=== PATIENT | female | born 2000 | race Hispanic/Latino ===

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

== ENCOUNTER 2021-01-16 12:35 | Emergency (ER) | payer BC, OTHER ==
[2021-01-16] MEDS ORDERED: KETOROLAC 30MG VIAL (30MG/ML) ONE (14:49)
[2021-01-16] MEDS ORDERED: CYCLOBENZAPRINE HCL 10 MG TABLET ONE (14:50)
[2021-01-16 15:04] LABS: APPEARANCE,URINE Cloudy (CLEAR); BILIRUBIN,URINE Negative (NEGATIVE); COLOR,URINE Yellow (YELLOW); GLUCOSE, URINE (UA) Negative (NEGATIVE); KETONES,URINE Negative (NEGATIVE); LEUKOCYTE ESTERASE ,URINE Moderate (NEGATIVE); NITRATE,URINE Negative (NEGATIVE); OCCULT BLOOD,URINE Negative (NEGATIVE); PH,URINE 6.5 (5.0-8.0); PROTEIN,URINE Negative (NEGATIVE)
[2021-01-16 15:14] LABS: HCG,QUAL RESULT NEGATIVE (NEGATIVE)
[2021-01-16 15:19] LABS: BACTERIA,URINE Few /HPF (None Seen); RBC,URINE 0-1 /HPF (0-1)
[2021-01-16 15:20] LABS: MUCUS,URINE Rare LPF (None Seen); SQUAMOUS EPITHELIAL CELL,UR Few /HPF (0-2)
[2021-08-29] MEDS ORDERED: CYCL10TA16 PO (19:41)
== END 2021-01-16 15:36 | disposition home or self-care (01) ==
LOC: EDH 12:35
DX: S39.012A Strain of muscle, fascia and tendon of lower back, initial encounter (principal); N39.0 Urinary tract infection, site not specified; X58.XXXA Exposure to other specified factors, initial encounter; Y93.89 Activity, other specified; Y92.89 Other specified places as the place of occurrence of the external cause; Y99.8 Other external cause status
CPT/HCPCS: 81001; 81025; 87088; 96372; 99283; J1885

== ENCOUNTER 2021-02-21 22:01 | Emergency (ER) | payer BC, OTHER ==
[2021-02-21] MEDS ORDERED: KETOROLAC TROMETHAMINE 60 MG/2 ML VIAL ONE (22:30)
[2021-02-21] MEDS ORDERED: CYCLOBENZAPRINE HCL 10 MG TABLET ONE (22:30)
== END 2021-02-21 23:44 | disposition home or self-care (01) ==
LOC: EDH 22:01
DX: S39.012A Strain of muscle, fascia and tendon of lower back, initial encounter (principal); S30.0XXA Contusion of lower back and pelvis, initial encounter; S20.229A Contusion of unspecified back wall of thorax, initial encounter; M62.830 Muscle spasm of back; W18.39XA Other fall on same level, initial encounter; Y93.89 Activity, other specified; Y92.89 Other specified places as the place of occurrence of the external cause; Y99.8 Other external cause status
CPT/HCPCS: 72100; 81025; 96372; 99284; J1885

== ENCOUNTER 2021-06-23 22:27 | Emergency (ER) | payer OTHER ==
[~2021-06-23] VITALS: Ht 144.8 cm; Wt 76.7 kg
[2021-06-23 23:27] LABS: APPEARANCE,URINE Clear (CLEAR); BILIRUBIN,URINE Negative (NEGATIVE); COLOR,URINE Yellow (YELLOW); GLUCOSE, URINE (UA) Negative (NEGATIVE); KETONES,URINE Negative (NEGATIVE); LEUKOCYTE ESTERASE ,URINE Small (NEGATIVE); NITRATE,URINE Negative (NEGATIVE); OCCULT BLOOD,URINE Moderate (NEGATIVE); PH,URINE 5.5 (5.0-8.0); PROTEIN,URINE Negative (NEGATIVE); UROBILINOGEN,URINE 0.2 mg/dL (0.2-1.0)
[2021-06-23 23:36] LABS: BACTERIA,URINE Rare /HPF (None Seen); SQUAMOUS EPITHELIAL CELL,UR Rare /HPF (0-2); WBC,URINE 0-1 /HPF (0-1)
[2021-06-24 00:34] VITALS: BP 138/88
[2021-06-24] MEDS ORDERED: KETOROLAC 30MG VIAL (30MG/ML) IV ONE (01:30)
[2021-06-24] MEDS ORDERED: LACTATED RINGERS 1000ML 1,000 ML IV ONE (01:30)
[2021-06-24] MEDS ORDERED: ORPHENADRINE CITRATE 30 MG/ML ML IV ONE (01:30)
[2021-06-24 01:47] LABS: BASOPHILS % (AUTO) 0.7 % (0.0-5.0); EOSINOPHILS % (AUTO) 1.2 % (0.0-8.0); HEMATOCRIT 45.5 % (36-48); LYMPHOCYTES % (AUTO) 44.4 % (21.0-51.0); MEAN CORPUSCULAR HEMOGLOBIN 31.1 pg (27.0-33.0); MEAN CORPUSCULAR HGB CONC 35.2 g/dL (32.0-36.0); MEAN CORPUSCULAR VOLUME 88.5 fL (80-100); MONOCYTES % (AUTO) 4.3 % (3.0-13.0); NEUTROPHILS % (AUTO) 49.2 % (40.0-77.0); PLATELET COUNT (AUTO) 112 K/uL (130-400); RED BLOOD CELL COUNT(AUTO) 5.14 MIL/uL (4.00-5.50); RED CELL DISTRIBUTION WIDTH 12.2 % (11.0-15.5); WHITE BLOOD COUNT (AUTO) 9.9 K/uL (4.8-10.8)
[2021-06-24 01:57] LABS: CREATININE 0.6 mg/dL (0.5-1.5); CRP QUANTITATIVE 6.4 mg/L (0.00-9.0); POTASSIUM 4.7 mmol/L (3.5-5.1)
[2021-06-24] MEDS ORDERED: NAPR-1174 PO (02:25)
[2021-06-24 03:17] VITALS: BP 132/82
== END 2021-06-24 03:24 | disposition home or self-care (01) ==
LOC: EDH 22:27
DX: M54.5 Low back pain (principal); N94.6 Dysmenorrhea, unspecified; Z79.1 Long term (current) use of non-steroidal anti-inflammatories (NSAID)
CPT/HCPCS: 36415; 80048; 81001; 81025; 85025; 86140; 96361; 96374; 96375; 99284; J1885; J2360; J7120

== ENCOUNTER 2021-08-29 16:49 | Emergency (ER) | payer OTHER ==
[~2021-08-29] VITALS: Ht 144.8 cm; Wt 72.6 kg
[~2021-08-29 16:49] MED LIST: NAPR-1174 PO
[2021-08-29] MEDS ORDERED: CYCLOBENZAPRINE HCL 10 MG TABLET PO ONE (18:30)
[2021-08-29] MEDS ORDERED: KETOROLAC 60 MG VIAL (30MG/ML) IM ONE (18:30)
[2021-08-29 19:25] VITALS: BP 132/86
[2021-08-29] MEDS ORDERED: CYCL10 PO (19:41)
[2021-08-29] MEDS ORDERED: MELO7.5T12 PO (19:41)
== END 2021-08-29 19:53 | disposition home or self-care (01) ==
LOC: EDH 16:49
DX: S39.012A Strain of muscle, fascia and tendon of lower back, initial encounter (principal); E78.00 Pure hypercholesterolemia, unspecified; X58.XXXA Exposure to other specified factors, initial encounter; Y93.89 Activity, other specified; Y92.89 Other specified places as the place of occurrence of the external cause; Y99.8 Other external cause status
CPT/HCPCS: 72100; 81025; 96372; 99284; J1885

== ENCOUNTER 2022-05-17 20:45 | Emergency (ER) | payer OTHER ==
[~2022-05-17] VITALS: Ht 144.8 cm; Wt 79.4 kg
[~2022-05-17 20:45] MED LIST changes: +CYCL10TA16 PO; +MELO7.5T12 PO
[2022-05-17] MEDS ORDERED: ACETAMINOPHEN 500 MG TABLET PO ONE (21:00)
[2022-05-17] MEDS ORDERED: 0.9%NACL 1000ML 1,000 ML IV SCH (21:00)
[2022-05-17] MEDS ORDERED: GUAIFENESIN-CODEINE 5 ML SYRUP PO ONE (21:00)
[2022-05-17] MEDS ORDERED: ACETAMINOPHEN 500 MG TABLET ONE (21:04)
[2022-05-17] MEDS ORDERED: GUAIFENESIN-CODEINE 5 ML SYRUP ONE (21:04)
[2022-05-17 21:17] LABS: BILIRUBIN,URINE NEGATIVE (NEGATIVE); COLOR,URINE YELLOW (YELLOW); GLUCOSE, URINE (UA) NEGATIVE (NEGATIVE); KETONES,URINE NEGATIVE (NEGATIVE); LEUKOCYTE ESTERASE ,URINE NEGATIVE (NEGATIVE); NITRATE,URINE NEGATIVE (NEGATIVE); OCCULT BLOOD,URINE NEGATIVE (NEGATIVE); PROTEIN,URINE NEGATIVE (NEGATIVE); UROBILINOGEN,URINE 0.2 mg/dL (0.2-1.0)
[2022-05-17 21:24] LABS: APPEARANCE,URINE CLEAR (CLEAR)
[2022-05-17] MEDS ORDERED: D-ME1POW16 PO (21:39)
[2022-05-17 21:53] VITALS: BP 134/82
== END 2022-05-17 22:02 | disposition home or self-care (01) ==
LOC: EDH 20:45
DX: U07.1 COVID-19 (principal); J06.9 Acute upper respiratory infection, unspecified; E86.0 Dehydration
CPT/HCPCS: 81003; 87635; 87804 ×2; 87880; 96360; 99283; C9803; J7030

== ENCOUNTER 2023-01-09 15:42 | Emergency (ER) | payer OTHER ==
[~2023-01-09] VITALS: Ht 144.8 cm; Wt 78.9 kg
[~2023-01-09 15:42] MED LIST changes: +D-ME1POW16 PO
[2023-01-09 16:02] LABS: BASOPHILS % (AUTO) 0.6 % (0.0-5.0); EOSINOPHILS % (AUTO) 0.6 % (0.0-8.0); HEMATOCRIT 46.6 % (36-48); LYMPHOCYTES % (AUTO) 29.6 % (21.0-51.0); MEAN CORPUSCULAR HEMOGLOBIN 31.8 pg (27.0-33.0); MEAN CORPUSCULAR HGB CONC 35.2 g/dL (32.0-36.0); MEAN CORPUSCULAR VOLUME 90.5 fL (80-100); MONOCYTES % (AUTO) 5.4 % (3.0-13.0); NEUTROPHILS % (AUTO) 63.5 % (40.0-77.0); PLATELET COUNT (AUTO) 302 K/uL (130-400); RED BLOOD CELL COUNT(AUTO) 5.15 MIL/uL (4.00-5.50); WHITE BLOOD COUNT (AUTO) 11.1 K/uL (4.8-10.8)
[2023-01-09 16:13] LABS: CREATININE 0.7 mg/dL (0.5-1.5); POTASSIUM 3.8 mmol/L (3.5-5.1)
[2023-01-09 16:19] LABS: ALBUMIN 4.1 g/dL (3.5-5.0); TOTAL PROTEIN, SERUM 8.3 g/dL (6.0-8.3)
[2023-01-09] MEDS ORDERED: IBUPROFEN 600 MG TABLET PO ONE (18:30)
[2023-01-09] MEDS ORDERED: CYCLOBENZAPRINE HCL 10 MG TABLET PO ONE (18:30)
[2023-01-09 18:53] VITALS: BP 150/90
[2023-01-09 18:55] LABS: APPEARANCE,URINE CLEAR (CLEAR); BILIRUBIN,URINE NEGATIVE (NEGATIVE); COLOR,URINE LIGHT-YELLOW (YELLOW); GLUCOSE, URINE (UA) NEGATIVE (NEGATIVE); KETONES,URINE NEGATIVE (NEGATIVE); LEUKOCYTE ESTERASE ,URINE NEGATIVE Leu/uL (NEGATIVE); NITRATE,URINE NEGATIVE (NEGATIVE); OCCULT BLOOD,URINE NEGATIVE (NEGATIVE); PH,URINE 5.5 (5.0-8.0); PROTEIN,URINE NEGATIVE (NEGATIVE); UROBILINOGEN,URINE 0.2 mg/dL (0.2-1.0)
[2023-01-09] MEDS ORDERED: CYCL10TA16 PO (19:16)
[2023-01-09] MEDS ORDERED: IBUP-2070 PO (19:16)
== END 2023-01-09 19:38 | disposition home or self-care (01) ==
LOC: EDH 15:42
DX: S39.012A Strain of muscle, fascia and tendon of lower back, initial encounter (principal); M94.0 Chondrocostal junction syndrome [Tietze]; E78.00 Pure hypercholesterolemia, unspecified; Z86.2 Personal history of diseases of the blood and blood-forming organs and certain disorders involving the immune mechanism; Z79.1 Long term (current) use of non-steroidal anti-inflammatories (NSAID); Z79.899 Other long term (current) drug therapy; X58.XXXA Exposure to other specified factors, initial encounter; Y93.89 Activity, other specified; Y92.89 Other specified places as the place of occurrence of the external cause; Y99.8 Other external cause status
CPT/HCPCS: 36415; 71045; 80053; 81003; 81025; 84484; 85025; 93005

== ENCOUNTER 2023-02-02 15:02 | Emergency (ER) | payer OTHER ==
[~2023-02-02] VITALS: Ht 144.8 cm; Wt 79.4 kg
[~2023-02-02 15:02] MED LIST changes: +IBUP-2070 PO
[2023-02-02 15:49] LABS: BASOPHILS % (AUTO) 0.5 % (0.0-5.0); EOSINOPHILS % (AUTO) 0.8 % (0.0-8.0); HEMATOCRIT 44.9 % (36-48); MEAN CORPUSCULAR HEMOGLOBIN 31.8 pg (27.0-33.0); MEAN CORPUSCULAR HGB CONC 35.2 g/dL (32.0-36.0); MEAN CORPUSCULAR VOLUME 90.3 fL (80-100); MONOCYTES % (AUTO) 5.4 % (3.0-13.0); PLATELET COUNT (AUTO) 242 K/uL (130-400); RED BLOOD CELL COUNT(AUTO) 4.97 MIL/uL (4.00-5.50); RED CELL DISTRIBUTION WIDTH 11.9 % (11.0-15.5); WHITE BLOOD COUNT (AUTO) 10.2 K/uL (4.8-10.8)
[2023-02-02 16:05] LABS: CREATININE 0.8 mg/dL (0.5-1.5); POTASSIUM 3.7 mmol/L (3.5-5.1)
[2023-02-02 16:09] LABS: ALBUMIN 4.1 g/dL (3.5-5.0); TOTAL PROTEIN, SERUM 7.8 g/dL (6.0-8.3)
[2023-02-02 18:45] LABS: APPEARANCE,URINE CLOUDY (CLEAR); BILIRUBIN,URINE NEGATIVE (NEGATIVE); COLOR,URINE LIGHT-YELLOW (YELLOW); GLUCOSE, URINE (UA) NEGATIVE (NEGATIVE); KETONES,URINE NEGATIVE (NEGATIVE); LEUKOCYTE ESTERASE ,URINE NEGATIVE Leu/uL (NEGATIVE); NITRATE,URINE NEGATIVE (NEGATIVE); OCCULT BLOOD,URINE NEGATIVE (NEGATIVE); PROTEIN,URINE NEGATIVE (NEGATIVE); UROBILINOGEN,URINE 0.2 mg/dL (0.2-1.0)
[2023-02-02 18:49] LABS: BACTERIA,URINE RARE /HPF (None Seen); MUCUS,URINE RARE LPF (None Seen); SQUAMOUS EPITHELIAL CELL,UR FEW /HPF (0-2); YEAST,URINE BUDDING FEW /HPF (None Seen)
[2023-02-02 18:51] LABS: HCG,QUALITATIVE URINE NEGATIVE (NEGATIVE)
[2023-02-02 20:41] VITALS: BP 126/62
== END 2023-02-02 20:41 | disposition home or self-care (01) ==
LOC: EDH 15:02
DX: M94.0 Chondrocostal junction syndrome [Tietze] (principal); F41.9 Anxiety disorder, unspecified; E66.01 Morbid (severe) obesity due to excess calories; E78.00 Pure hypercholesterolemia, unspecified; Z68.37 Body mass index [BMI] 37.0-37.9, adult
CPT/HCPCS: 36415; 71045; 80053; 81001; 81025; 84484; 85025; 93005

== ENCOUNTER 2023-06-27 19:33 | Emergency (ER) | payer OTHER ==
[~2023-06-27] VITALS: Ht 144.8 cm; Wt 79.4 kg
[2023-06-27 19:36] VITALS: O2SAT 98
[2023-06-27 19:37] VITALS: BP 154/91; PULSE 93; RESP 18
[2023-06-27 19:56] LABS: HCG,QUALITATIVE URINE NEGATIVE (NEGATIVE)
[2023-06-27 19:59] LABS: APPEARANCE,URINE TURBID (CLEAR); BILIRUBIN,URINE NEGATIVE (NEGATIVE); COLOR,URINE LIGHT-YELLOW (YELLOW); GLUCOSE, URINE (UA) NEGATIVE (NEGATIVE); KETONES,URINE NEGATIVE (NEGATIVE); LEUKOCYTE ESTERASE ,URINE NEGATIVE Leu/uL (NEGATIVE); NITRATE,URINE NEGATIVE (NEGATIVE); OCCULT BLOOD,URINE NEGATIVE (NEGATIVE); PROTEIN,URINE NEGATIVE (NEGATIVE); UROBILINOGEN,URINE 0.2 mg/dL (0.2-1.0)
[2023-06-27 20:00] LABS: ADD UA MICROSCOPIC NO
== END 2023-06-27 20:22 | disposition home or self-care (01) ==
LOC: EDH 19:33
DX: G43.909 Migraine, unspecified, not intractable, without status migrainosus (principal); E66.9 Obesity, unspecified; E78.00 Pure hypercholesterolemia, unspecified; Z79.899 Other long term (current) drug therapy
CPT/HCPCS: 81003; 81025

== ENCOUNTER 2023-12-12 18:53 | Emergency (ER) | payer BC, OTHER ==
[~2023-12-12] VITALS: Ht 144.8 cm; Wt 86.2 kg
[2023-12-12 19:24] LABS: RAPID GROUP A STREP negative (NEGATIVE)
[2023-12-12 19:29] LABS: BASOPHILS # (AUTO) 0.06 K/uL (0.00-0.20); BASOPHILS % (AUTO) 0.7 % (0.0-5.0); EOSINOPHILS # (AUTO) 0.23 K/uL (0.00-0.70); EOSINOPHILS % (AUTO) 2.9 % (0.0-8.0); HEMATOCRIT 44.3 % (36-48); IMMATURE GRANULOCYTE ABSOLUTE 0.03 K/uL (0-1); LYMPHOCYTES # (AUTO) 2.8 K/uL (1.0-4.8); MEAN CORPUSCULAR HEMOGLOBIN 31.4 pg (27.0-33.0); MEAN CORPUSCULAR HGB CONC 36.1 g/dL (32.0-36.0); MEAN CORPUSCULAR VOLUME 86.9 fL (79-99); MONOCYTES # (AUTO) 0.3 K/uL (0.1-1.0); MONOCYTES % (AUTO) 3.1 % (3.0-13.0); NEUTROPHILS # (AUTO) 4.7 K/uL (1.8-7.7); NEUTROPHILS % (AUTO) 57.9 % (40.0-77.0); PLATELET COUNT (AUTO) 252 K/uL (130-400); RED CELL DISTRIBUTION WIDTH 12.2 % (11.0-15.5); WHITE BLOOD COUNT (AUTO) 8.1 K/uL (4.8-10.8)
[2023-12-12 19:30] LABS: SARS-CoV-2, RNA, NAAT NEGATIVE SARS CoV-2 (NEGATIVE)
[2023-12-12] MEDS ORDERED: ACETAMINOPHEN 500 MG TABLET PO ONE (19:30)
[2023-12-12 19:34] LABS: INFLUENZA TYPE A Negative For Type A (NEGATIVE); INFLUENZA TYPE B Negative For Type B (NEGATIVE)
[2023-12-12 19:46] LABS: ALBUMIN 3.6 g/dL (3.5-5.0); BILIRUBIN,TOTAL 0.8 mg/dL (0.2-1.0); CREATININE 0.7 mg/dL (0.5-1.5); TOTAL PROTEIN, SERUM 8.1 g/dL (6.0-8.3)
[2023-12-12 20:02] VITALS: TEMP 99.8
[2023-12-12] MEDS ORDERED: BUDE90AE IH (20:54)
[2023-12-12] MEDS ORDERED: BENZ-39 PO (20:54)
[2023-12-12] MEDS ORDERED: ALBUHFA IH (20:54)
[2023-12-12] MEDS ORDERED: DEXAMETHASONE SOD PHOSPHATE 4 MG/ML 1ML VIAL IM ONE (21:00)
[2023-12-12 21:07] VITALS: BP 115/52; PULSE 80; RESP 14; O2SAT 97
== END 2023-12-12 21:28 | disposition home or self-care (01) ==
LOC: EDH 18:53
DX: J20.8 Acute bronchitis due to other specified organisms (principal); R05.9 Cough, unspecified; E66.9 Obesity, unspecified; E78.00 Pure hypercholesterolemia, unspecified; F41.9 Anxiety disorder, unspecified; F32.A Depression, unspecified; G43.909 Migraine, unspecified, not intractable, without status migrainosus; Z68.41 Body mass index [BMI] 40.0-44.9, adult; Z20.822 Contact with and (suspected) exposure to COVID-19
CPT/HCPCS: 99284; 71045; 87635; 80053; 85025; 87880; 87804 ×2; 36415; 96372; J1100

== ENCOUNTER 2024-02-03 18:30 | Emergency (ER) | payer BC ==
[~2024-02-03] VITALS: Ht 144.8 cm; Wt 92.1 kg
[~2024-02-03 18:30] MED LIST changes: +ALBUHFA IH; +BENZ-39 PO; +BUDE90AE IH
[2024-02-03 19:03] LABS: RAPID GROUP A STREP negative (NEGATIVE)
[2024-02-03 19:11] LABS: SARS-CoV-2, RNA, NAAT NEGATIVE SARS CoV-2 (NEGATIVE)
[2024-02-03 19:13] LABS: INFLUENZA TYPE A Negative For Type A (NEGATIVE); INFLUENZA TYPE B Negative For Type B (NEGATIVE)
[2024-02-03] MEDS ORDERED: BENZ-39 PO (20:06)
[2024-02-03] MEDS ORDERED: AZIT250T9 PO (20:06)
[2024-02-03 20:26] VITALS: BP 145/98; PULSE 104; RESP 22; O2SAT 94
[2024-02-03] MEDS: ACETAMINOPHEN 500 MG TABLET PO ONE (20:43)
[2024-02-03] MEDS: DEXAMETHASONE SOD PHOSPHATE 4 MG/ML 1ML VIAL IM SCH (20:43)
== END 2024-02-03 21:33 | disposition home or self-care (01) ==
LOC: EDH 18:30
DX: J20.8 Acute bronchitis due to other specified organisms (principal); J02.0 Streptococcal pharyngitis; R05.9 Cough, unspecified; E78.00 Pure hypercholesterolemia, unspecified; Z79.51 Long term (current) use of inhaled steroids; Z20.822 Contact with and (suspected) exposure to COVID-19
CPT/HCPCS: 99284; 87635; 87880; 87804 ×2; 96372; J1100

== ENCOUNTER 2024-10-22 09:04 | Emergency (ER) | payer SELFPAY ==
[~2024-10-22] VITALS: Ht 144.8 cm; Wt 97.5 kg
[~2024-10-22 09:04] MED LIST changes: +AZIT250T9 PO; -BUDE90AE IH; +BUDE90AE3 IH
[2024-10-22 09:36] LABS: BASOPHILS # (AUTO) 0.06 K/uL (0.00-0.20); BASOPHILS % (AUTO) 0.6 % (0.0-5.0); EOSINOPHILS % (AUTO) 2.1 % (0.0-8.0); HEMATOCRIT 39.8 % (36-48); IMMATURE GRANULOCYTE ABSOLUTE 0.03 K/uL (0-1); LYMPHOCYTES % (AUTO) 31.7 % (21.0-51.0); MEAN CORPUSCULAR HEMOGLOBIN 31.2 pg (27.0-33.0); MEAN CORPUSCULAR HGB CONC 35.7 g/dL (32.0-36.0); MEAN CORPUSCULAR VOLUME 87.5 fL (79-99); MONOCYTES # (AUTO) 0.4 K/uL (0.1-1.0); MONOCYTES % (AUTO) 4.7 % (3.0-13.0); NEUTROPHILS # (AUTO) 5.7 K/uL (1.8-7.7); NEUTROPHILS % (AUTO) 60.6 % (40.0-77.0); PLATELET COUNT (AUTO) 241 K/uL (130-400); RED BLOOD CELL COUNT(AUTO) 4.55 MIL/uL (4.00-5.50); RED CELL DISTRIBUTION WIDTH 12.5 % (11.0-15.5); WHITE BLOOD COUNT (AUTO) 9.4 K/uL (4.8-10.8)
[2024-10-22 09:43] LABS: CREATININE 0.6 mg/dL (0.5-1.0); POTASSIUM 3.7 mmol/L (3.5-5.1)
--- NOTE | 2024-10-22 10:22 | HMCIMG ---
CHEST 1VW HISTORY: Chest pain COMPARISON: 12/12/2023 FINDINGS: A frontal projection of the chest was obtained. No acute pulmonary infiltrates is seen. The heart is normal in size. Prominent interstitial markings are seen. No evidence of aortic calcification is seen. IMPRESSION: 1. No acute pulmonary infiltrate is seen.
--- NOTE | 2024-10-22 11:19 | ERN ---
ED Note History of Present Illness Stated Complaint: CP Chief Complaint: Chest Pain Time Seen by MD: 09:09 Dictation: This 24-year-old female presents in the emergency department with a sharp nonradiating substernal chest discomfort just to the right of the sternum that began yesterday evening while coughing and has been persistent since. The patient has been coughing producing green sputum for 3-4 days and has had some night sweats and nausea but no documented fever. The pain is exacerbated by deep breath and cough. She describes it as mostly sharp with some pressure component. Patient has no pain or swelling in the legs. She reports that she has run out of some of her asthma medications. She has a previous history of migraines, asthma, hyperlipidemia and hypertension. She has been using Tylenol at home for her pain. The patient denies cigarettes, alcohol and recreational drugs. She is here with family Allergies: Coded Allergies: No Known Allergies (Unverified Allergy, Unknown, 06/23/21) Home Meds Active Scripts Albuterol Sulfate (Ventolin Hfa/Proventil Hfa/Proair Hfa) 90 Mcg Puff, 2 PUFF IH Q4H PRN for SHORTNESS OF BREATH/WHEEZING for 30 Days, #1 INH 0 Refills Prov:DUSTIN MARTINEZ NP 02/03/24 Budesonide (Pulmicort Flexhaler) 90 Mcg Aer.pow.ba, 90 MCG IH BID for 10 Days, #1 UNIT 2 puffs by mouth twice a day for 10 days. Prov:DUSTIN MARTINEZ NP 02/03/24 Benzonatate (Tessalon Perles) 100 Mg Cap, 100 MG PO TID for cough, #30 CAP 0 Re fills Take 2 tablets by mouth every 8 hours as needed for cough. Prov:DUSTIN MARTINEZ NP 02/03/24 Azithromycin (Azithromycin) 250 Mg Tablet, 250 MG PO AD, #10 TAB Take 2 tablets by mouth daily for 5 days. Prov:DUSTIN MARTINEZ NP 02/03/24 Benzonatate (Tessalon Perles) 100 Mg Cap, 100 MG PO TIDP PRN for COUGH, #30 CAP Prov:DUSTIN MARTINEZ NP 12/12/23 Albuterol Sulfate (Ventolin Hfa/Proventil Hfa/Proair Hfa) 90 Mcg Puff, 2 PUFF IH Q4H for WHEEZING, #1 INHALER 0 Refills Prov:DUSTIN MARTINEZ [employer] 12/12/23 Budesonide (Pulmicort Flexhaler) 90 Mcg Aer.pow.ba, 90 MCG IH BID for 10 Days, #1 UNIT Prov:DUSTIN MARTINEZ [employer] 12/12/23 Cyclobenzaprine HCl (Flexeril) 10 Mg Tab, 10 MG PO TID PRN for MUSCLE SPASMS for 3 Days, #9 TAB Prov:CAR CASTILLO V HEARING OFFICER 01/09/23 Ibuprofen (Ibuprofen) 600 Mg Tablet, 600 MG PO Q6H PRN for PAIN for 10 Days, #40 TAB Prov:CAR CASTILLO V HEARING OFFICER 01/09/23 D-Methorphan/PE/Acetaminophen (Theraflu Ms Severe Cold Pckt) 1 Each Powd.pack, 1 EACH PO QID, #20 PACK Prov:KANDICE ARREGUIN 05/17/22 Cyclobenzaprine HCl (Flexeril) 10 Mg Tab, 10 MG PO BID, #30 TAB Prov:KANDICE ARREGUIN 08/29/21 Meloxicam (Mobic) 7.5 Mg Tablet, 7.5 MG PO BIDAC, #60 TAB Prov:KANDICE ARREGUIN 08/29/21 Naproxen Sodium (Naproxen Sodium) 550 Mg Tablet, 550 MG PO BID WITH FOOD for PAIN, #20 TAB 0 Refills Prov:SHANITA HERNANDEZ MD 06/24/21 Past Medical History Past Medical History: Asthma, High Cholesterol, Hypertension, Migraines Additional Past Medical Hx: BACK SPASMS Surgical History: None Family History: Negative Social History: Negative, Lives with family History: Not Applicable : 0 RN Note Reviewed/Agreed w/PFSH: Yes Review of System Dictation All pertinent systems reviewed, negative except as documented in the HPI The ROS is obtained from patient GENERAL/CONSTITUTIONAL: Negative except as documented in HPI. ENT: Negative except as documented in HPI. CARDIOVASCULAR: Negative except as documented in HPI. RESPIRATORY: Negative except as documented in HPI. GASTROINTESTINAL: Negative except as documented in HPI. GENITOURINARY: Negative except as documented in HPI. MUSCULOSKELETAL: Negative except as documented in HPI. SKIN: Negative except as documented in HPI. NEUROLOGIC: Negative except as documented in HPI. Initial Vital Sign VS Vital Signs Date Time Temp Pulse Resp B/P (MAP) Pulse Ox O2 Delivery O2 Flow Rate FiO2 10/22/24 09:06 98.4 73 22 132/81 97 Room Air* 0 21 Physical Exam Dictation VITAL SIGNS: note is made of triage vital signs CONSTITUTIONAL: This is a comfortable patient who is awake, alert, and appropriately interactive. HEAD: Normocephalic, Atraumatic. EYES: Periorbital areas with no swelling, redness, or edema. Lids and lashes are normal. Conjunctival injection is absent. Sclera anicteric. Pupils equal, round, reactive to light. ENT: No nasal discharge noted. Posterior pharynx is without exudate, redness, swelling, masses, or evidence of obstruction. Uvula midline. Mucous membranes moist. NECK: Trachea midline, no masses palpated, and no cervical lymphadenopathy. No swelling. Supple, full range of motion without nuchal rigidity. No vertebral point tenderness. No meningismus. CHEST/AXILLA: Normal chest wall appearance and motion. There was reproducible chest wall tenderness along the upper right sternocostal margin which reproduces the patient's chief complaint. No crepitus. CV: Normal rate, regular rhythm. No murmur. No edema. RESPIRATORY:Respiratory rate is normal. Bilateral equal breath sounds with good airflow. Mild wheezing and a dry cough are noted. No increased work of digna thing, no retractions. ABDOMEN: Inspection normal. No distention is appreciated. Bowel sounds are normal. No mass or organomegaly is appreciated. There is no tenderness. No rebound. No rigidity. No voluntary or involuntary guarding. BACK: Inspection is normal. No midline tenderness is appreciated. The patient appears comfortable when moving. : No CVA tenderness or bladder tenderness. SKIN: Warm, dry, with normal turgor. Capillary refill less than 3 seconds. Normal color.No rash. No cellulitis or abscess. No evidence of acute injury. MS/Extremity: There is no calf tenderness. Baseline range of motion is noted in all 4 extremities. There are no deformities. NEURO: Awake and alert, lucid. Facies symmetric and speech is clear. Motor strength 5/5 in all extremities. Sensory grossly intact. PSYCH: Patient is appropriately attentive and cooperative without evidence of hallucination. Results (Laboratory/Radiology) Laboratory/Radiology Laboratory Tests Test 10/22/24 09:18 10/22/24 09:54 10/22/24 11:45 White Blood Count 9.4 K/uL (4.8-10.8) Red Blood Count 4.55 MIL/uL (4.00-5.50) Hemoglobin 14.2 g/dL (12.0-16.0) Hematocrit 39.8 % (36-48) Mean Corpuscular Volume 87.5 fL (79-99) Mean Corpuscular Hemoglobin 31.2 pg (27.0-33.0) Mean Corpuscular Hemoglobin Concent 35.7 g/dL (32.0-36.0) Red Cell Distribution Width 12.5 % (11.0-15.5) Platelet Count 241 K/uL (130-400) Mean Platelet Volume 10.3 fL (7.5-10.5) Immature Granulocyte % (Auto) 0.3 % (0-1) Neutrophils (%) (Auto) 60.6 % (40.0-77.0) Lymphocytes (%) (Auto) 31.7 % (21.0-51.0) Monocytes (%) (Auto) 4.7 % (3.0-13.0) Eosinophils (%) (Auto) 2.1 % (0.0-8.0) Basophils (%) (Auto) 0.6 % (0.0-5.0) Neutrophils # (Auto) 5.7 K/uL (1.8-7.7) Lymphocytes # (Auto) 3.0 K/uL (1.0-4.8) Monocytes # (Auto) 0.4 K/uL (0.1-1.0) Eosinophils # (Auto) 0.20 K/uL (0.00-0.70) Basophils # (Auto) 0.06 K/uL (0.00-0.20) Absolute Immature Granulocyte (auto 0.03 K/uL (0-1) Nucleated Red Blood Cells 0.0 % (0.0-0.19) Sodium Level 134 mmol/L (136-145) L Potassium Level 3.7 mmol/L (3.5-5.1) Chloride Level 101 mmol/L (101-111) Carbon Dioxide Level 26 mmol/L (21-32) Blood Urea Nitrogen 9 mg/dL (7-18) Creatinine 0.6 mg/dL (0.5-1.0) Glomerular Filtration Rate Calc 129 mL/min (>90) Random Glucose 93 mg/dL (70-105) Total Calcium 8.5 mg/dL (8.5-10.1) Total Creatine Kinase 51 U/L (21-232) Serum Test, Qualitative NEGATIVE (NEGATIVE) Troponin I < 0.05 ng/mL (0.00-0.05) Urine Color LIGHT-YELLOW (YELLOW) Urine Appearance CLEAR (CLEAR) Urine pH 7.0 (5.0-8.0) Urine Specific [place] 1.019 (1.001-1.031) Urine Protein NEGATIVE mg/dL (NEGATIVE) Urine Glucose (UA) NEGATIVE mg/dL (NEGATIVE) Urine Ketones NEGATIVE mg/dL (NEGATIVE) Urine Occult Blood NEGATIVE (NEGATIVE) Urine Nitrate NEGATIVE (NEGATIVE) Urine Bilirubin NEGATIVE mg/dL (NEGATIVE) Urine Urobilinogen 0.2 mg/dL (0.2-1.0) Urine Leukocyte Esterase 25 [place]/uL (NEGATIVE) H Urine RBC 2-5 /HPF (0-1) H Urine WBC 2-5 /HPF (0-1) H Urine Squamous Epithelial Cells FEW /HPF (0-2) Urine Bacteria FEW /HPF (None Seen) Labs Reviewed?: Yes EKG Comment: Time reviewed: 9:00 a.m. EKG number; 1 Rate and rhythm: Normal sinus rhythm at 74 beats per minute [place]: Left axis deviation at -32 Morphology:Normal NE interval: normal QT interval: normal ST/[place]: normal Impression: normal sinus rhythm without STEMI or ectopy Comparison EKG: none EKG INTERPRETATION by Dr. Christal García ED Course ED Course Orders Procedure Category Date Status Time Vital Signs Per CPOE 10/22/24 Transmitted Routine 09:05 Chest 1vw RAD 10/22/24 Resulted 09:05 12 Lead Ekg Tracing- EKG 10/22/24 Logged Technical 09:05 Oxygen By Nc/Pulse Ox CPOE 10/22/24 Transmitted 09:05 Maintain Iv CPOE 10/22/24 Transmitted 09:05 Iv Insertion CPOE 10/22/24 Transmitted 09:05 Cardiac Monitoring CPOE 10/22/24 Transmitted 09:05 Pulse Oximetry With CPOE 10/22/24 Transmitted Vs And Prn 09:05 Cbc With Differential LAB 10/22/24 Complete 09:05 Activity: Br W/Brp CPOE 10/22/24 Transmitted With Assist 09:05 Creatine Kinase, Total LAB 10/22/24 Complete 09:05 Urinalysis Profile LAB 10/22/24 Complete 09:05 Troponin Poc Order LAB 10/22/24 Complete Only 09:05 Bedside Troponin-I LAB.ER 10/22/24 In Process (Poc) 09:05 Basic Metabolic Panel LAB 10/22/24 Complete 09:05 Testing, LAB 10/22/24 Complete Serum Hcg 09:05 Benzonatate 100 Mg PHA 10/22/24 Complete Capsule (Tessalon 100 12:00 Ipratropium/Albuterol PHA 10/22/24 Complete Neb (Duoneb) 12:00 Methylprednisolone PHA 10/22/24 Complete Succ 125mg (Solu-Medr 12:00 Ibuprofen 600 Mg PHA 10/22/24 Complete Tablet (Motrin) 12:00 Current Medications Medications (Trade) Dose Ordered Sig/Patrick Route PRN Reason Start Time Stop Time Status Last Admin Dose Admin Albuterol (DUOneb) 1 UDVIAL ONCE ONCE IH 10/22/24 12:00 10/22/24 12:01 DC 10/22/24 11:57 Benzonatate (Tessalon 100mg Caps) 100 mg ONCE ONCE PO 10/22/24 12:00 10/22/24 12:01 DC 10/22/24 12:12 Ibuprofen (moTRIN) 600 mg ONCE ONCE PO 10/22/24 12:00 10/22/24 12:01 DC 10/22/24 12:12 Methylprednisolone Sodium Succinate (Solu-medROL 125MG) 125 mg ONCE ONCE IVP 10/22/24 12:00 10/22/24 12:01 DC 10/22/24 12:12 Vital Signs Date Time Temp Pulse Resp B/P (MAP) Pulse Ox O2 Delivery O2 Flow Rate FiO2 10/22/24 11:59 68 18 10/22/24 09:06 98.4 73 22 132/81 97 Room Air 0 10/22/24 09:06 98.4 73 22 132/81 97 Room Air* 0 21 HEART Score Response (Comments) Value History: Low suspicion (0) 0 EKG: Normal 0 Age: < 45yrs (0) 0 Risk Factors: No known risk factors (0) 0 Initial Troponin: Normal limit (0) 0 HEART Score Risk: Low Risk for MACE (1-3) Total 0 Medical Decision Making MDM INITIAL IMPRESSION Initial history and physical concerning for costochondral pain associated with coughing in the setting of mild URI and asthma exacerbation Contributing medical problems: Asthma, morbid obesity I have reviewed the triage nursing notes and vital signs. The patient is afebrile with acceptable oxygen saturation, heart rate and blood pressure. Initial plan: Symptomatic therapy, anticipate discharge DATA REVIEW I have reviewed additional NN, repeat VS, and monitoring where indicated. Heart rate, blood pressure, and O2 saturation are acceptable. [facility] diagnostic results: CBC unremarkable. Troponin is negative. Glucose is 93. Beta hCG is negative. Other independent historian: none Review of external data: None. ED COURSE Interventions: Patient received Motrin, albuterol, Tessalon and some steroids. Reassessment: She reports marked improvement DISPOSITION Final diagnostic impression: Costochondral pain, URI with a mild asthma exacerbation I discussed my findings, clinical impression and treatment recommendations with the patient. I have reviewed the social factors contributing to the patient's presentation and disposition planning. My final plan for disposition was made based upon clinical findings, response to treatment and discussion with the patient regarding management options. Hospitalization is not indicated due to low risk of short term progression, complication, morbidity or mortality related to the current diagnosis At the time of discharge, the vital signs are within acceptable limits. Repeat examination: Improved tenderness Patient has been able to take oral liquids. The discharge treatment plan includes cough medication, ibuprofen, refill of the Pulmicort I have have reviewed any perscription and/or OTC medications. Incidental findings discussed: none Questions were invited and answered in layman's terms. I have emphasized my follow-up recommendations and reviewed ED return precautions. I have answered any questions in layman's terms. The patient understands that they will have to arrange for out-patient follow-up for recheck of today's condition. The patient is stable and appropriate for discharge from the ED. This dictation was prepared using [employer] voice recognition software. Occasional voice recognition errors may occur. When identified, these errors have been corrected. While every attempt is made to correct errors during dictation, errors may still exist. DX & DISP Disposition: Discharge Decision to Admit Date: Oct 22, 2024 Decision to Admit Time: 13:11 Departure Impression: Primary Impression: Costochondritis Additional Impressions: Viral bronchitis, Mild asthma exacerbation Condition: Stable Scripts Budesonide (Pulmicort Flexhaler) 90 Mcg Aer.pow.ba 2 PUFF IH BID for 30 Days, #1 EACH 0 Refills Prov: CHRISTAL GARCÍA MD 10/22/24 Benzonatate (Tessalon Perles) 100 Mg Cap 1 CAP PO TID for cough for 10 Days, #30 CAP 0 Refills Prov: CHRISTAL GARCÍA MD 10/22/24 Ibuprofen (Ibuprofen) 600 Mg Tablet 1 TAB PO TID for pain for 10 Days, #30 TAB 0 Refills with food Prov: CHRISTAL GARCÍA MD 10/22/24 Additional Instructions: Use the medications as directed. Continue your albuterol as needed for wheeze. Return to the emergency department for increasing difficulty breathing or other worsening. Follow up with your family physician if you are not much better in the next few days. Referrals: KEMAR GALDAMEZ M.D. (PCP) Time of Disposition: 13:14 CHRISTAL GARCÍA MD Oct 22, 2024 11:19
[2024-10-22] MEDS: IpraTROPium/alBUTERol SULFATE 3 ML SOLUTION IH ONE (11:57)
[2024-10-22 11:59] VITALS: PULSE 68; RESP 18
[2024-10-22 12:02] LABS: APPEARANCE,URINE CLEAR (CLEAR); BILIRUBIN,URINE NEGATIVE (NEGATIVE); COLOR,URINE LIGHT-YELLOW (YELLOW); GLUCOSE, URINE (UA) NEGATIVE (NEGATIVE); KETONES,URINE NEGATIVE (NEGATIVE); LEUKOCYTE ESTERASE ,URINE 25 Leu/uL (NEGATIVE); NITRATE,URINE NEGATIVE (NEGATIVE); OCCULT BLOOD,URINE NEGATIVE (NEGATIVE); PROTEIN,URINE NEGATIVE (NEGATIVE); UROBILINOGEN,URINE 0.2 mg/dL (0.2-1.0)
[2024-10-22 12:05] LABS: ADD UA MICROSCOPIC YES
[2024-10-22 12:10] LABS: BACTERIA,URINE FEW /HPF (None Seen); MUCUS,URINE RARE LPF (None Seen); SQUAMOUS EPITHELIAL CELL,UR FEW /HPF (0-2)
[2024-10-22] MEDS: Solu-medROL 125MG VIAL IVP ONE (12:12)
[2024-10-22] MEDS: ibuPROFEN 600 MG TABLET PO ONE (12:12)
[2024-10-22] MEDS: BENZONATATE 100 MG CAPSULE PO ONE (12:12)
[2024-10-22] MEDS ORDERED: BENZ-39 PO (13:13)
[2024-10-22] MEDS ORDERED: IBUP-2070 PO (13:13)
[2024-10-22] MEDS ORDERED: BUDE90AE3 IH (13:13)
[2024-10-22 13:37] VITALS: BP 136/78; PULSE 78; RESP 18; TEMP 98.1; O2SAT 98
--- NOTE | 2024-10-22 19:55 | EKG ---
[facility] Test Date: 2024-10-22 Test Time: 08:57:36 Pat Name: YOGESH BAIRSE Department: ED Room: Gender: F Brick Catcher: [facility] : 2000 Requested By: CHRISTAL GARCÍA Order Number: [id number] Reading MD: Alina Millan Measurements Intervals [place] Rate: 74 P: 28 ND: 130 QRS: -32 QRSD: 91 T: -1 QT: 355 QTc: 393 Interpretive Statements Sinus rhythm Left axis deviation Compared to ECG 02/02/2023 15:30:40 Left-axis deviation now present ST (T wave) deviation no longer present Electronically Signed On 10-23-2024 11:34:24 [employer]RIGATION DISTRICT MANAGER by Alina Millan Please click the below link to view image of tracing.
== END 2024-10-22 13:51 | disposition home or self-care (01) ==
LOC: EDH 09:04
DX: M94.0 Chondrocostal junction syndrome [Tietze] (principal); J20.8 Acute bronchitis due to other specified organisms; J45.901 Unspecified asthma with (acute) exacerbation; B97.89 Other viral agents as the cause of diseases classified elsewhere; E66.01 Morbid (severe) obesity due to excess calories; E78.00 Pure hypercholesterolemia, unspecified; I10 Essential (primary) hypertension; Z79.51 Long term (current) use of inhaled steroids
CPT/HCPCS: 99285; 96374; 71045; 82550; 84484; 80048; 84703; 85025; 81001; 36415; 93005; 94640; J2919

== ENCOUNTER 2024-11-26 18:00 | Emergency (ER) | payer SELFPAY ==
[~2024-11-26] VITALS: Ht 144.8 cm; Wt 99.8 kg
--- NOTE | 2024-11-26 19:18 | NUR ---
TOOK OVER PATIENT AT THIS TIME
[2024-11-26 19:29] LABS: BASOPHILS # (AUTO) 0.04 K/uL (0.00-0.20); BASOPHILS % (AUTO) 0.6 % (0.0-5.0); EOSINOPHILS # (AUTO) 0.11 K/uL (0.00-0.70); EOSINOPHILS % (AUTO) 1.6 % (0.0-8.0); HEMATOCRIT 41.4 % (36-48); IMMATURE GRANULOCYTE ABSOLUTE 0.02 K/uL (0-1); LYMPHOCYTES # (AUTO) 2.2 K/uL (1.0-4.8); LYMPHOCYTES % (AUTO) 31.6 % (21.0-51.0); MEAN CORPUSCULAR HEMOGLOBIN 31.3 pg (27.0-33.0); MONOCYTES # (AUTO) 0.3 K/uL (0.1-1.0); MONOCYTES % (AUTO) 4.5 % (3.0-13.0); NEUTROPHILS # (AUTO) 4.2 K/uL (1.8-7.7); NEUTROPHILS % (AUTO) 61.4 % (40.0-77.0); PLATELET COUNT (AUTO) 262 K/uL (130-400); RED BLOOD CELL COUNT(AUTO) 4.76 MIL/uL (4.00-5.50); RED CELL DISTRIBUTION WIDTH 12.2 % (11.0-15.5); WHITE BLOOD COUNT (AUTO) 6.9 K/uL (4.8-10.8)
[2024-11-26 19:30] LABS: SARS-CoV-2, RNA, NAAT NEGATIVE SARS CoV-2 (NEGATIVE)
[2024-11-26 19:34] LABS: INFLUENZA TYPE A Negative For Type A (NEGATIVE); INFLUENZA TYPE B Negative For Type B (NEGATIVE)
[2024-11-26 19:40] LABS: CREATININE 0.7 mg/dL (0.5-1.0); POTASSIUM 3.8 mmol/L (3.5-5.1)
--- NOTE | 2024-11-26 19:40 | HMCIMG ---
PORTABLE CHEST RADIOGRAPH INDICATION: sob/cough COMPARISON: 10/22/2024 FINDINGS: Heart size is normal. The pulmonary vascularity and michael appear normal. No abnormal pulmonary parenchymal opacity or consolidation identified. No significant pleural effusion noted. No pneumothorax detected. IMPRESSION: No radiographic evidence for any acute cardiopulmonary process.
[2024-11-26 19:41] LABS: APPEARANCE,URINE CLOUDY (CLEAR); BILIRUBIN,URINE NEGATIVE (NEGATIVE); COLOR,URINE YELLOW (YELLOW); GLUCOSE, URINE (UA) NEGATIVE (NEGATIVE); KETONES,URINE NEGATIVE (NEGATIVE); LEUKOCYTE ESTERASE ,URINE 25 Leu/uL (NEGATIVE); NITRATE,URINE NEGATIVE (NEGATIVE); OCCULT BLOOD,URINE LARGE (NEGATIVE); PROTEIN,URINE 10 mg/dL (NEGATIVE); UROBILINOGEN,URINE 0.2 mg/dL (0.2-1.0)
[2024-11-26 19:47] LABS: ADD UA MICROSCOPIC YES
[2024-11-26 19:51] LABS: MUCUS,URINE RARE LPF (None Seen); RBC,URINE TNTC /HPF (0-1); SQUAMOUS EPITHELIAL CELL,UR MANY /HPF (0-2)
[2024-11-26] MEDS ORDERED: ONDA-243 PO (20:06)
[2024-11-26] MEDS ORDERED: LOPE2CAP PO (20:06)
[2024-11-26] MEDS ORDERED: FAMO-136 PO (20:06)
--- NOTE | 2024-11-26 20:07 | ERN ---
General Chief Complaint: Multiple Complaints Stated Complaint: COUGH,DIZZINESS,DIARRHEA,BACK PAIN Time Seen by MD: 18:10 Time Seen by Midlevel: 18:10 Source: patient History of Present Illness Initial Comments Patient is a 24-year-old female with a past medical history of hypertension on losartan presenting to the emergency department with flu-like symptoms. Symptoms consist of cough, congestion, diffuse abdominal pain diarrhea. Patient reports being exposed to flu. Denies any other concerns at this time Allergies: Coded Allergies: metoclopramide (Unverified Allergy, Unknown, 11/26/24) Home Meds Active Scripts Loperamide HCl (Loperamide) 2 Mg Capsule, 2 MG PO 5XDAY for diarrhea, #10 CAP 0 Refills Take 2 tablets initially and then 1 tablet with every loose bowel movement. Prov:YANI GAGNON 11/26/24 Famotidine (Pepcid) 20 Mg Tablet, 1 TAB PO BID for 30 Days, #60 TAB 0 Refills Prov:YANI GAGNON 11/26/24 Ondansetron (Ondansetron Odt) 4 Mg Tab.rapdis, 4 MG PO BID for 7 Days, #14 TAB Prov:YANI GAGNON 11/26/24 Budesonide (Pulmicort Flexhaler) 90 Mcg Aer.pow.ba, 2 PUFF IH BID for 30 Days, #1 EACH 0 Refills Prov:CHRISTAL GARCÍA MD 10/22/24 Benzonatate (Tessalon Perles) 100 Mg Cap, 1 CAP PO TID for cough for 10 Days, # 30 CAP 0 Refills Prov:CHRISTAL GARCÍA MD 10/22/24 Ibuprofen (Ibuprofen) 600 Mg Tablet, 1 TAB PO TID for pain for 10 Days, #30 TAB 0 Refills with food Prov:CHRISTAL GARCÍA MD 10/22/24 Albuterol Sulfate (Ventolin Hfa/Proventil Hfa/Proair Hfa) 90 Mcg Puff, 2 PUFF IH Q4H PRN for SHORTNESS OF BREATH/WHEEZING for 30 Days, #1 INH 0 Refills Prov:DUSTIN MARTINEZ NP 02/03/24 Budesonide (Pulmicort Flexhaler) 90 Mcg Aer.pow.ba, 90 MCG IH BID for 10 Days, #1 UNIT 2 puffs by mouth twice a day for 10 days. Prov:DUSTIN MARTINEZ MOLECULAR GENETIC PATHOLOGIST 02/03/24 Benzonatate (Tessalon Perles) 100 Mg Cap, 100 MG PO TID for cough, #30 CAP 0 Refills Take 2 tablets by mouth every 8 hours as needed for cough. Prov:DUSTIN MARTINEZ MOLECULAR GENETIC PATHOLOGIST 02/03/24 Azithromycin (Azithromycin) 250 Mg Tablet, 250 MG PO AD, #10 TAB Take 2 tablets by mouth daily for 5 days. Prov:DUSTIN MARTINEZ NP 02/03/24 Benzonatate (Tessalon Perles) 100 Mg Cap, 100 MG PO TIDP PRN for COUGH, #30 CAP Prov:DUSTIN MARTINEZ MOLECULAR GENETIC PATHOLOGIST 12/12/23 Albuterol Sulfate (Ventolin Hfa/Proventil Hfa/Proair Hfa) 90 Mcg Puff, 2 PUFF IH Q4H for WHEEZING, #1 INHALER 0 Refills Prov:DUSTIN MARTINEZ NP 12/12/23 Budesonide (Pulmicort Flexhaler) 90 Mcg Aer.pow.ba, 90 MCG IH BID for 10 Days, #1 UNIT Prov:DUSTIN MARTINEZ NP 12/12/23 Cyclobenzaprine HCl (Flexeril) 10 Mg Tab, 10 MG PO TID PRN for MUSCLE SPASMS for 3 Days, #9 TAB Prov:CAR CASTILLO 01/09/23 Ibuprofen (Ibuprofen) 600 Mg Tablet, 600 MG PO Q6H PRN for PAIN for 10 Days, #40 TAB Prov:CAR CASTILLO 01/09/23 D-Methorphan/PE/Acetaminophen (Theraflu Ms Severe Cold Pckt) 1 Each Powd.pack, 1 EACH PO QID, #20 PACK Prov:KANDICE ARREGUIN 05/17/22 Cyclobenzaprine HCl (Flexeril) 10 Mg Tab, 10 MG PO BID, #30 TAB Prov:KANDICE ARRGEUIN 08/29/21 Meloxicam (Mobic) 7.5 Mg Tablet, 7.5 MG PO BIDAC, #60 TAB Prov:KANDICE ARREGUIN 08/29/21 Naproxen Sodium (Naproxen Sodium) 550 Mg Tablet, 550 MG PO BID WITH FOOD for PAIN, #20 TAB 0 Refills Prov:SHANITA HERNANDEZ MD 06/24/21 Past Medical History Past Medical History: Asthma, High Cholesterol, Hypertension, Migraines Medical History Other: BACK SPASMS, PCOS Past Surgical History: None Family History Family History: Negative Social History Social History: Negative, Lives with family Female( History) History: Not Applicable LMP: Nov 26, 2023 : 0 ROS Dictation CONSTITUTIONAL: Negative except for HPI HEAD/FACE: Negative except for HPI EENT: Negative except for HPI RESPIRATORY: Negative except for HPI GASTROINTESTINAL/ABDOMINAL: Negative except for HPI GENITOURINARY: Negative except for HPI MUSCULOSKELETAL: Negative except for HPI INTEGUMENTARY: Negative except for HPI NEUROLOGICAL/PSYCH: Negative except for HPI HEMATOLOGIC/LYMPHATIC: Negative except for HPI All Systems Negative, Except as noted above. 13 point review of systems assessed and all negative except for above. Physical Exam Physical Exam Dictation Vital Signs reviewed General Appearance: Alert, oriented x 3, no acute distress, well developed, nourished. Head and Face: non-traumatic. Eyes: PERRL, pink conjunctivas, eyelid no trauma, anterior chamber with arcus senilis. Ears: Pinnas intact and no signs of trauma or erythema ear canals clear and no discharge TM no erythema Nose: No discharge, no bleeding. Oropharynx: Mouth normal, tongue pink, pharynx clear,no erythema, tonsils no exudates, no abscesses noted, mucous membrane moist Neck: Supple, non-tender, no thyromegaly, no masses, no JVD, no bruits Breast:Deferred Chest:No tenderness, no crepitus, no paradoxical movement, no retractions Lungs:Clear, well-ventilated, symmetric, no rales, no wheezing, no rhonchi, no stridor, good breath sounds bilaterally Heart: Regular rate, regular rhythm, no murmur, no gallops Vascular: no peripheral edema, Abdomen: Soft, positive bowel sounds, nondistended, no guarding, nontender, no rebound, no masses no hepatomegaly, no splenomegaly, no Reyes's sign, no hernias. Rectal: Deferred Genital: Deferred Neurological: Normal speech, motor function intact, sensory function intact Musculoskeletal: Neck nontender, full range of motion, back nontender, full range of motion, Extremities: nontender, full range of motion Skin: Color pink, dry, no turgor, no rash, no lacerations, no abrasions, no contusions. Lymphatic: Deferred Results Laboratory and Microbiology Lab and Micro Result Laboratory Tests Test 11/26/24 19:01 11/26/24 19:21 11/26/24 19:31 Influenza Type A Antigen Negative For Type A Influenza Type B Antigen Negative For Type B SARS-CoV-2, RNA, NAAT NEGATIVE SARS CoV-2 White Blood Count 6.9 K/uL (4.8-10.8) Red Blood Count 4.76 MIL/uL (4.00-5.50) Hemoglobin 14.9 g/dL (12.0-16.0) Hematocrit 41.4 % (36-48) Mean Corpuscular Volume 87.0 fL (79-99) Mean Corpuscular Hemoglobin 31.3 pg (27.0-33.0) Mean Corpuscular Hemoglobin Concent 36.0 g/dL (32.0-36.0) Red Cell Distribution Width 12.2 % (11.0-15.5) Platelet Count 262 K/uL (130-400) Mean Platelet Volume 10.3 fL (7.5-10.5) Immature Granulocyte % (Auto) 0.3 % (0-1) Neutrophils (%) (Auto) 61.4 % (40.0-77.0) Lymphocytes (%) (Auto) 31.6 % (21.0-51.0) Monocytes (%) (Auto) 4.5 % (3.0-13.0) Eosinophils (%) (Auto) 1.6 % (0.0-8.0) Basophils (%) (Auto) 0.6 % (0.0-5.0) Neutrophils # (Auto) 4.2 K/uL (1.8-7.7) Lymphocytes # (Auto) 2.2 K/uL (1.0-4.8) Monocytes # (Auto) 0.3 K/uL (0.1-1.0) Eosinophils # (Auto) 0.11 K/uL (0.00-0.70) Basophils # (Auto) 0.04 K/uL (0.00-0.20) Absolute Immature Granulocyte (auto 0.02 K/uL (0-1) Nucleated Red Blood Cells 0.0 % (0.0-0.19) Sodium Level 142 mmol/L (136-145) Potassium Level 3.8 mmol/L (3.5-5.1) Chloride Level 105 mmol/L (101-111) Carbon Dioxide Level 27 mmol/L (21-32) Blood Urea Nitrogen 8 mg/dL (7-18) Creatinine 0.7 mg/dL (0.5-1.0) Glomerular Filtration Rate Calc 125 mL/min (>90) Random Glucose 125 mg/dL (70-105) H Total Calcium 9.0 mg/dL (8.5-10.1) Serum Test, Qualitative NEGATIVE (NEGATIVE) Urine Color YELLOW (YELLOW) Urine Appearance CLOUDY (CLEAR) H Urine pH 7.0 (5.0-8.0) Urine Specific [place] 1.024 (1.001-1.031) Urine Protein 10 mg/dL (NEGATIVE) H Urine Glucose (UA) NEGATIVE mg/dL (NEGATIVE) Urine Ketones NEGATIVE mg/dL (NEGATIVE) Urine Occult Blood LARGE (NEGATIVE) H Urine Nitrate NEGATIVE (NEGATIVE) Urine Bilirubin NEGATIVE mg/dL (NEGATIVE) Urine Urobilinogen 0.2 mg/dL (0.2-1.0) Urine Leukocyte Esterase 25 [place]ni/uL (NEGATIVE) H Urine RBC TNTC /HPF (0-1) H Urine WBC 2-5 /HPF (0-1) H Urine Squamous Epithelial Cells MANY /HPF (0-2) Urine Bacteria None /HPF (None Seen) Labs Reviewed?: Yes MDM MDM: Differential diagnosis: Viral syndrome, urinary tract infection, upper respiratory infection, pneumonia There are no social concerns with this patient. Prescription drug management Prescriptions will include: Zofran, Pepcid, loperamide Medical management and examination interpretation discussions were had by me with other qualified healthcare professionals as indicated for the patient's care. ED Course Orders Procedure Category Date Status Time Covid Rna Naat LAB 11/26/24 Complete 18:40 Influenza Type A & B, LAB 11/26/24 Complete Rapid 18:40 Basic Metabolic Panel LAB 11/26/24 Complete 18:45 Cbc With Differential LAB 11/26/24 Complete 18:45 Chest 1vw RAD 11/26/24 Resulted 18:45 Urinalysis Profile LAB 11/26/24 Complete 18:45 Testing, LAB 11/26/24 Complete Serum Hcg 18:45 Vital Signs Date Time Temp Pulse Resp B/P (MAP) Pulse Ox O2 Delivery O2 Flow Rate FiO2 11/26/24 19:04 98.8 87 18 146/83 95 Room Air* 0 21 11/26/24 18:15 98.2 94 16 166/106 97 Room Air 0 DX & DISP Disposition: Discharge Departure Impression: Primary Impression: Viral illness Condition: Stable Scripts Loperamide HCl (Loperamide) 2 Mg Capsule 2 MG PO 5XDAY for diarrhea, #10 CAP 0 Refills Take 2 tablets initially and then 1 tablet with every loose bowel movement. Prov: YANI GAGNON 11/26/24 Famotidine (Pepcid) 20 Mg Tablet 1 TAB PO BID for 30 Days, #60 TAB 0 Refills Prov: YANI GAGNON 11/26/24 Ondansetron (Ondansetron Odt) 4 Mg Tab.rapdis 4 MG PO BID for 7 Days, #14 TAB Prov: YANI GAGNON 11/26/24 Additional Instructions: Your blood work today is unremarkable. Your white blood cell count is normal. Your electrolytes are within normal ranges. Your liver function tests are normal. You have tested negative for influenza a, influenza B, and COVID-19. Please follow up with your primary care doctor in 2-3 days for repeat evaluation. Return to the ER for any new or worsening symptoms Referrals: KEMAR GALDAMEZ M.D. (PCP) Time of Disposition: 20:05 I have reviewed the case, and I agree with, Diagnosis and Plan I performed the substantive portion of the visit. I have reviewed and personally made and approve the management plan that is documented in the note by myself or the BRITTNEY. I acknowledge for responsibility for the patient's management plan. YANI GAGNON Nov 26, 2024 20:07
[2024-11-26 20:13] VITALS: BP 142/88; PULSE 88; RESP 18; TEMP 98.7; O2SAT 95
== END 2024-11-26 20:14 | disposition home or self-care (01) ==
LOC: EDH 18:00
DX: B34.9 Viral infection, unspecified (principal); E78.00 Pure hypercholesterolemia, unspecified; I10 Essential (primary) hypertension; J45.909 Unspecified asthma, uncomplicated; G43.909 Migraine, unspecified, not intractable, without status migrainosus; Z20.822 Contact with and (suspected) exposure to COVID-19; Z79.1 Long term (current) use of non-steroidal anti-inflammatories (NSAID); Z79.51 Long term (current) use of inhaled steroids
CPT/HCPCS: 36415; 71045; 80048; 81001; 84703; 85025; 87635; 87804; 99284

== ENCOUNTER 2024-12-04 18:29 | Emergency (ER) | payer SELFPAY ==
[~2024-12-04] VITALS: Ht 144.8 cm; Wt 99.8 kg
[~2024-12-04 18:29] MED LIST changes: +FAMO-136 PO; +LOPE2CAP PO; +ONDA-243 PO
--- NOTE | 2024-12-04 18:58 | NUR ---
UNABLE TO TRIAGE. PT NOT PRESENT.
--- NOTE | 2024-12-04 19:04 | ERN ---
ED Note History of Present Illness Stated Complaint: MULT COMP Time Seen by MD: 18:31 Dictation: PATIENT IS A 24-YEAR-OLD FEMALE HERE COMING IN WITH FLU-LIKE SYMPTOMS TO INCLUDE CLEAR RHINITIS WITH A MILD SORE THROAT OCCASIONAL PRODUCTIVE COUGH WITH CLEAR YELLOW PHLEGM. SHE ALSO HAS HAD MILD SHORTNESS BREATH AND WHEEZING FOR THE LAST 2-3 DAYS. NO FEVER NO CHILLS NO NAUSEA VOMITING. SHE STATES SHE DID HAVE FEVER THE 1ST DAY SHE WAS SICK OF 99.9. SHE STATES IT CO-WORKER HAD THE SAME COMPLAINT THREE DAYS AGO. SHE HAS NOT BEEN TO SEE HER PRIMARY CARE DOCTOR. SHE STATES SHE DOES HAVE A HISTORY OF ASTHMA, USED HER INHALER THIS MORNING WITH ALBUTEROL. Allergies: Coded Allergies: metoclopramide (Unverified Allergy, Unknown, 11/26/24) Home Meds Active Scripts Loperamide HCl (Loperamide) 2 Mg Capsule, 2 MG PO 5XDAY for diarrhea, #10 CAP 0 Refills Take 2 tablets initially and then 1 tablet with every loose bowel movement. Prov:YANI GAGNON 11/26/24 Famotidine (Pepcid) 20 Mg Tablet, 1 TAB PO BID for 30 Days, #60 TAB 0 Refills Prov:YANI GAGNON 11/26/24 Ondansetron (Ondansetron Odt) 4 Mg Tab.rapdis, 4 MG PO BID for 7 Days, #14 TAB Prov:YANI GAGNON 11/26/24 Budesonide (Pulmicort Flexhaler) 90 Mcg Aer.pow.ba, 2 PUFF IH BID for 30 Days, #1 EACH 0 Refills Prov:CHRISTAL GARCÍA MD 10/22/24 Benzonatate (Tessalon Perles) 100 Mg Cap, 1 CAP PO TID for cough for 10 Days, #30 CAP 0 Refills Prov:CHRISTAL GARCÍA MD 10/22/24 Ibuprofen (Ibuprofen) 600 Mg Tablet, 1 TAB PO TID for pain for 10 Days, #30 TAB 0 Refills with food Prov:CHRISTAL GARCÍA MD 10/22/24 Albuterol Sulfate (Ventolin Hfa/Proventil Hfa/Proair Hfa) 90 Mcg Puff, 2 PUFF IH Q4H PRN for SHORTNESS OF BREATH/WHEEZING for 30 Days, #1 INH 0 Refills Prov:DUSTIN MARTINEZ NP 02/03/24 Budesonide (Pulmicort Flexhaler) 90 Mcg Aer.pow.ba, 90 MCG IH BID for 10 Days, #1 UNIT 2 puffs by mouth twice a day for 10 days. Prov:DUSTIN MARTINEZ NP 02/03/24 Benzonatate (Tessalon Perles) 100 Mg Cap, 100 MG PO TID for cough, #30 CAP 0 Refills Take 2 tablets by mouth every 8 hours as needed for cough. Prov:DUSTIN MARTINEZ NP 02/03/24 Azithromycin (Azithromycin) 250 Mg Tablet, 250 MG PO AD, #10 TAB Take 2 tablets by mouth daily for 5 days. Prov:DUSTIN MARTINEZ NP 02/03/24 Benzonatate (Tessalon Perles) 100 Mg Cap, 100 MG PO TIDP PRN for COUGH, #30 CAP Prov:DUSTIN MARTINEZ NP 12/12/23 Albuterol Sulfate (Ventolin Hfa/Proventil Hfa/Proair Hfa) 90 Mcg Puff, 2 PUFF IH Q4H for WHEEZING, #1 INHALER 0 Refills Prov:DUSTIN MARTINEZ NP 12/12/23 Budesonide (Pulmicort Flexhaler) 90 Mcg Aer.pow.ba, 90 MCG IH BID for 10 Days, #1 UNIT Prov:DUSTIN MARTINEZ NP 12/12/23 Cyclobenzaprine HCl (Flexeril) 10 Mg Tab, 10 MG PO TID PRN for MUSCLE SPASMS for 3 Days, #9 TAB Prov:CAR CASTILLO V [employer] 01/09/23 Ibuprofen (Ibuprofen) 600 Mg Tablet, 600 MG PO Q6H PRN for PAIN for 10 Days, #40 TAB Prov:CAR CASTILLO V [employer] 01/09/23 D-Methorphan/PE/Acetaminophen (Theraflu Ms Severe Cold Pckt) 1 Each Powd.pack, 1 EACH PO QID, #20 PACK Prov:KANDICE ARREGUIN 05/17/22 Cyclobenzaprine HCl (Flexeril) 10 Mg Tab, 10 MG PO BID, #30 TAB Prov:KANDICE ARREGUIN 08/29/21 Meloxicam (Mobic) 7.5 Mg Tablet, 7.5 MG PO BIDAC, #60 TAB Prov:KANDICE ARREGUIN 08/29/21 Naproxen Sodium (Naproxen Sodium) 550 Mg Tablet, 550 MG PO BID WITH FOOD for PAIN, #20 TAB 0 Refills Prov:SHANITA HERNANDEZ MD 06/24/21 Past Medical History Past Medical History: Asthma, High Cholesterol, Hypertension, Migraines Additional Past Medical Hx: BACK SPASMS, PCOS Surgical History: None PSYCH History: no pertinent psych hx Family History: Negative Social History: Negative, Lives with family History: Not Applicable : 0 RN Note Reviewed/Agreed w/PFSH: Yes Review of System Dictation CONSTITUTIONAL: NEGATIVE EXCEPT FOR HPI HEAD/FACE: NEGATIVE EXCEPT FOR HPI EENT: NEGATIVE EXCEPT FOR HPI CLEAR RHINITIS WITH MILD SORE THROAT RESPIRATORY: NEGATIVE EXCEPT FOR HPI OCCASIONAL PRODUCTIVE COUGH, SOB GASTROINTESTINAL/ABDOMINAL: NEGATIVE EXCEPT FOR HPI GENITOURINARY: NEGATIVE EXCEPT FOR HPI MUSCULOSKELETAL: NEGATIVE EXCEPT FOR HPI INTEGUMENTARY: NEGATIVE EXCEPT FOR HPI NEUROLOGICAL/PSYCH: NEGATIVE EXCEPT FOR HPI HEMATOLOGIC/LYMPHATIC: NEGATIVE EXCEPT FOR HPI ALL SYSTEMS NEGATIVE, EXCEPT NOTED ABOVE. 13 POINT REVIEW OF SYSTEMS ASSESSED AND ALL NEGATIVE EXCEPT FOR ABOVE. Initial Vital Sign VS Vital Signs Date Time Temp Pulse Resp B/P (MAP) Pulse Ox O2 Delivery O2 Flow Rate FiO2 12/04/24 19:01 98.8 118 20 141/101 97 Room Air 12/04/24 19:58 0 21 Physical Exam Dictation VITAL SIGNS REVIEWED GENERAL APPEARANCE: ALERT, ORIENTED X 3, MILD ACUTE DISTRESS, WELL DEVELOPED, NOURISHED. OBESE HEAD AND FACE: NON-TRAUMATIC. EYES: PERRL, PINK CONJUNCTIVAS, EYELID NO TRAUMA, ANTERIOR CHAMBER WITH ARCUS SENILIS. EARS: PINNAS INTACT AND NO SIGNS OF TRAUMA OR ERYTHEMA EAR CANALS CLEAR AND NO DISCHARGE TM NO ERYTHEMA NOSE: CLEAR DISCHARGE, NO BLEEDING. OROPHARYNX: MOUTH NORMAL, TONGUE PINK, PHARYNX CLEAR,N MODERATE PHARYNGEAL ERYTHEMA ERYTHEMA, TONSILS NO EXUDATES, NO ABSCESSES NOTED, MUCOUS MEMBRANE MOIST UVULA MIDLINE VOICE IS CLEAR NECK: SUPPLE, NON-TENDER, NO THYROMEGALY, NO MASSES, NO JVD, NO BRUITS BREAST:DEFERRED CHEST:NO TENDERNESS, NO CREPITUS, NO PARADOXICAL MOVEMENT, NO RETRACTIONS LUNGS:CLEAR, WELL-VENTILATED, SYMMETRIC, NO RALES, NO WHEEZING, NO RHONCHI, NO STRIDOR, GOOD BREATH SOUNDS BILATERALLY OCCASIONAL DRY COUGH NOTED HEART: REGULAR RATE, REGULAR RHYTHM, NO MURMUR, NO GALLOPS VASCULAR: NO PERIPHERAL EDEMA, ABDOMEN: SOFT, POSITIVE BOWEL SOUNDS, NONDISTENDED, NO GUARDING, NONTENDER, NO REBOUND, NO MASSES NO HEPATOMEGALY, NO SPLENOMEGALY, NO LOERA'S SIGN, NO HERNIAS. RECTAL: DEFERRED GENITAL: DEFERRED NEUROLOGICAL: NORMAL SPEECH, MOTOR FUNCTION INTACT, SENSORY FUNCTION INTACT MUSCULOSKELETAL: NECK NONTENDER, FULL RANGE OF MOTION, BACK NONTENDER, FULL RANGE OF MOTION, EXTREMITIES: NONTENDER, FULL RANGE OF MOTION SKIN: COLOR PINK, DRY, NO TURGOR, NO RASH, NO LACERATIONS, NO ABRASIONS, NO CONTUSIONS. LYMPHATIC: DEFERRED Results (Laboratory/Radiology) Laboratory/Radiology Laboratory Tests Test 12/04/24 19:15 Influenza Type A Antigen Negative For Type A Influenza Type B Antigen Negative For Type B SARS-CoV-2 Antigen (Rapid) PRESUMPTIVE NEGATIVE Group A Streptococcus Rapid negative (NEGATIVE) Labs Reviewed?: Yes ED Course ED Course Orders Procedure Category Date Status Time Covid19 (Sars Antigen LAB 12/04/24 Complete Rapid) 19:01 Influenza Type A & B, LAB 12/04/24 Complete Rapid 19:01 Rapid (Group A Strep) LAB 12/04/24 Complete 19:01 Dexamethasone 4mg/Ml PHA 12/04/24 Complete 1ml Vial (Dexametha 19:30 Current Medications Medications (Trade) Dose Ordered Sig/Patrick Route PRN Reason Start Time Stop Time Status Last Admin Dose Admin Dexamethasone Sodium Phosphate (dexaMETHasone 4MG/ML 1ML VIAL) 8 mg ONCE ONCE IM 12/04/24 19:30 12/04/24 19:31 DC 12/04/24 20:07 Vital Signs Date Time Temp Pulse Resp B/P (MAP) Pulse Ox O2 Delivery O2 Flow Rate FiO2 12/04/24 19:58 98.4 115 20 140/100 98 Room Air* 0 21 12/04/24 19:01 98.8 118 20 141/101 97 Room Air 2017, PATIENT FEELS BETTER AFTER DECADRON. SHE WILL BE DISCHARGED HOME WITH VIRAL URI WITH COUGH, ASTHMA EXACERBATION AND ACUTE PHARYNGITIS UNSPECIFIED. Medical Decision Making MDM MEDICAL DECISION-MAKING BASED ON SWABS FOR FLU COVID AND STREP. PATIENT GIVEN DECADRON8 MG IM FOR BRONCHIAL INFLAMMATION SHE WILL BE DISCHARGED HOME WITH PREDNISONE 20 TITRATING DOSE ZITHROMAX 500 MG DAILY FOR SEVEN DAYS NO WORK UNTIL CLEARED BY HER PRIMARY CARE DOCTOR LG PAUL FOR COUGH DX & DISP Disposition: Discharge Departure Impression: Primary Impression: Viral URI with cough Additional Impressions: Acute pharyngitis, unspecified, Asthma flare Condition: Stable Scripts Azithromycin (Zithromax Tri-Kyle) 500 Mg Tablet 500 MG PO DAILY for 7 Days, #7 TAB Prov: DUSTIN MARTINEZ NP 12/04/24 Benzonatate (Tessalon Perles) 100 Mg Cap 100 MG PO TID for cough, #30 CAP 0 Refills Prov: DUSTIN MARTINEZ NP 12/04/24 Prednisone (Prednisone) 20 Mg Tablet 1 TAB PO AD for 6 Days, #14 TAB 0 Refills TAKE 1 TAB BY MOUTH THREE TIMES PER DAY X3 DAYS, THEN TAKE 1 TAB BY MOUTH TWICE A DAY X2 DAYS, THEN TAKE 1 TAB BY MOUTH ONCE A DAY X1 DAY. Prov: DUSTIN MARTINEZ NP 12/04/24 Additional Instructions: FOLLOW-UP WITH PRIMARY CARE PROVIDER IN 1 TO 2 DAYS. TAKE MEDICATIONS DIRECTED HERE IN THE EMERGENCY ROOM. OKAY TO CONTINUE HOME MEDICATIONS UNLESS OTHERWISE DISCUSSED DURING YOUR VISIT IN THE EMERGENCY ROOM TODAY. RETURN TO YOUR NEAREST EMERGENCY ROOM IF SYMPTOMS WORSEN OR IF THERE IS NO IMPROVEMENT. CALL 911 IF YOU NEED IMMEDIATE ASSISTANCE. TAKE TYLENOL OR MOTRIN [id number] NEEDED AND IF NO CONTRAINDICATIONS ARE PRESENT. INCREASE ORAL HYDRATION. A WOUND CULTURE OR URINE CULTURE WAS ORDERED HERE IN THE EMERGENCY ROOM DEPARTMENT PLEASE FOLLOW-UP WITH PRIMARY CARE PROVIDER AND ADVISE THEM TO GET REPEAT PORTS FROM OUR FACILITY. IF YOU HAD ANY CHRIS WRAP/SPLINTS THAT WERE APPLIED HERE, PLEASE DO NOT REMOVE THEM UNTIL YOU SEE YOUR PRIMARY CARE OR SPECIALTY. USE YOUR ALBUTEROL NEBULIZER EVERY4 HOURS WHILE AWAKE FOR THE NEXT TWO DAYS. TAKE PREDNISONE AND AZITHROMYCIN DIRECTED UNTIL GONE. NO WORK UNTIL CLEARED BACK BY YOUR PRIMARY CARE DOCTOR Referrals: KEMAR GALDAMEZ M.D. (PCP) Time of Disposition: 20:20 I have reviewed the case, and I agree with, Diagnosis and Plan DUSTIN MARTINEZ NP Dec 04, 2024 19:04
--- NOTE | 2024-12-04 19:06 | NUR ---
COVID, FLU AND STREP SWABS COLLECTED AND SENT
[2024-12-04 19:28] LABS: RAPID GROUP A STREP negative (NEGATIVE)
[2024-12-04 19:39] LABS: INFLUENZA TYPE A Negative For Type A (NEGATIVE); INFLUENZA TYPE B Negative For Type B (NEGATIVE)
[2024-12-04 19:40] LABS: COVID19 (SARS ANTIGEN RAPID) PRESUMPTIVE NEGATIVE (NEGATIVE)
[2024-12-04 19:58] VITALS: BP 140/100; PULSE 115; RESP 20; TEMP 98.5; O2SAT 98
[2024-12-04] MEDS: dexaMETHasone SOD PHOSPHATE 4 MG/ML 1ML VIAL IM ONE (20:07)
[2024-12-04] MEDS ORDERED: AZIT500T2 PO (20:21)
[2024-12-04] MEDS ORDERED: PRED20TA3 PO (20:21)
== END 2024-12-04 20:37 | disposition home or self-care (01) ==
LOC: EDH 18:29
DX: J06.9 Acute upper respiratory infection, unspecified (principal); B97.89 Other viral agents as the cause of diseases classified elsewhere; J02.9 Acute pharyngitis, unspecified; J45.909 Unspecified asthma, uncomplicated; R05.9 Cough, unspecified; E78.00 Pure hypercholesterolemia, unspecified; I10 Essential (primary) hypertension; Z79.1 Long term (current) use of non-steroidal anti-inflammatories (NSAID); Z79.51 Long term (current) use of inhaled steroids; Z20.822 Contact with and (suspected) exposure to COVID-19
CPT/HCPCS: 99283; 87426; 87880; 87804 ×2; 96372; J1100

== ENCOUNTER 2025-10-09 23:44 | Emergency (ER) | payer OTHER ==
[~2025-10-09] VITALS: Ht 144.8 cm; Wt 102.1 kg
[~2025-10-09 23:44] MED LIST changes: +AZIT500T2 PO; +IBUP-1492 PO; -IBUP-2070 PO; +PRED20TA3 PO
[2025-10-10] MEDS ORDERED: BENZ200C53 PO (00:35)
[2025-10-10] MEDS ORDERED: ORPH100 PO (00:35)
--- NOTE | 2025-10-10 00:38 | ERN ---
General Chief Complaint: Rib Pain Stated Complaint: C/O CP, SOB, PAIN TO RT RIB AREA Time Seen by MD: 23:47 Source: patient History of Present Illness Initial Comments 25-year-old female who has a history of chronic bronchitis had a new onset cold and cough that started this morning. Associated with the symptoms was central chest pain and right rib pain. Timing/Duration: 4-6 hours Severity: mild Allergies: Coded Allergies: metoclopramide (Unverified Allergy, Unknown, 11/26/24) Home Meds Active Scripts Azithromycin (Zithromax Tri-Kyle) 500 Mg Tablet, 500 MG PO DAILY for 7 Days, #7 TAB Prov:DUSTIN MARTINEZ STUDIO SET UP WORKER 12/04/24 Benzonatate (Tessalon Perles) 100 Mg Cap, 100 MG PO TID for cough, #30 CAP 0 Refills Prov:DUSTIN MARTINEZ [employer]UDIO [employer] UP WORK[employer] 12/04/24 Prednisone (Prednisone) 20 Mg Tablet, 1 TAB PO AD for 6 Days, #14 TAB 0 Refills TAKE 1 TAB BY MOUTH THREE TIMES PER DAY X3 DAYS, THEN TAKE 1 TAB BY MOUTH TWICE A DAY X2 DAYS, THEN TAKE 1 TAB BY MOUTH ONCE A DAY X1 DAY. Prov:DUSTIN MARTINEZ [employer]UDIO [employer] UP WORKER 12/04/24 Loperamide HCl (Loperamide) 2 Mg Capsule, 2 MG PO 5XDAY for diarrhea, #10 CAP 0 Refills Take 2 tablets initially and then 1 tablet with every loose bowel movement. Prov:YANI GAGNON 11/26/24 Famotidine (Pepcid) 20 Mg Tablet, 1 TAB PO BID for 30 Days, #60 TAB 0 Refills Prov:YANI GAGNON 11/26/24 Ondansetron (Ondansetron Odt) 4 Mg Tab.rapdis, 4 MG PO BID for 7 Days, #14 TAB Prov:YANI GAGNON PAC 11/26/24 Budesonide (Pulmicort Flexhaler) 90 Mcg Aer.pow.ba, 2 PUFF IH BID for 30 Days, #1 EACH 0 Refills Prov:CHRISTAL GARCÍA MD 10/22/24 Benzonatate (Tessalon Perles) 100 Mg Cap, 1 CAP PO TID for cough for 10 Days, #30 CAP 0 Refills Prov:CHRISTAL GARCÍA MD 10/22/24 Ibuprofen (Ibuprofen) 600 Mg Tablet, 1 TAB PO TID for pain for 10 Days, #30 TAB 0 Refills with food Prov:CHRISTAL GARCÍA MD 10/22/24 Albuterol Sulfate (Ventolin Hfa/Proventil Hfa/Proair Hfa) 90 Mcg Puff, 2 PUFF IH Q4H PRN for SHORTNESS OF BREATH/WHEEZING for 30 Days, #1 INH 0 Refills Prov:DUSTIN MARTINEZ [employer]UDIO [employer] UP WORKER 02/03/24 Budesonide (Pulmicort Flexhaler) 90 Mcg Aer.pow.ba, 90 MCG IH BID for 10 Days, #1 UNIT 2 puffs by mouth twice a day for 10 days. Prov:DUSTIN MARTINEZ [employer]UDIO [employer] UP WORKER 02/03/24 Benzonatate (Tessalon Perles) 100 Mg Cap, 100 MG PO TID for cough, #30 CAP 0 Refills Take 2 tablets by mouth every 8 hours as needed for cough. Prov:DUSTIN MARTINEZ [employer]UDIO [employer] UP WORKER 02/03/24 Azithromycin (Azithromycin) 250 Mg Tablet, 250 MG PO AD, #10 TAB Take 2 tablets by mouth daily for 5 days. Prov:DUSTIN MARTINEZ [employer]UDIO [employer] UP WORKER 02/03/24 Benzonatate (Tessalon Perles) 100 Mg Cap, 100 MG PO TIDP PRN for COUGH, #30 CAP Prov:DUSTIN MARTINEZ STUDIO [employer] UP WORKER 12/12/23 Albuterol Sulfate (Ventolin Hfa/Proventil Hfa/Proair Hfa) 90 Mcg Puff, 2 PUFF IH Q4H for WHEEZING, #1 INHALER 0 Refills Prov:DUSTIN MARTINEZ STUDIO [employer] UP WORKER 12/12/23 Budesonide (Pulmicort Flexhaler) 90 Mcg Aer.pow.ba, 90 MCG IH BID for 10 Days, #1 UNIT Prov:DUSTIN MARTINEZ [employer]UDIO [employer] UP WORKER 12/12/23 Cyclobenzaprine HCl (Flexeril) 10 Mg Tab, 10 MG PO TID PRN for MUSCLE SPASMS for 3 Days, #9 TAB Prov:CAR CASTILLO V [employer]UDIO SET UP WORKER 01/09/23 Ibuprofen (Ibuprofen) 600 Mg Tablet, 600 MG PO Q6H PRN for PAIN for 10 Days, #40 TAB Prov:CAR CASTILLO V [employer]UDIO SET UP WORKER 01/09/23 D-Methorphan/PE/Acetaminophen (Theraflu Ms Severe Cold Pckt) 1 Each Powd.pack, 1 EACH PO QID, #20 PACK Prov:KANDICE ARREGUIN 05/17/22 Cyclobenzaprine HCl (Flexeril) 10 Mg Tab, 10 MG PO BID, #30 TAB Prov:KANDICE ARREGUIN 08/29/21 Meloxicam (Mobic) 7.5 Mg Tablet, 7.5 MG PO BIDAC, #60 TAB Prov:KANDICE ARREGUIN 08/29/21 Naproxen Sodium (Naproxen Sodium) 550 Mg Tablet, 550 MG PO BID WITH FOOD for MAMIE N, #20 TAB 0 Refills Prov:SHANITA HERNANDEZ MD 06/24/21 Past Medical History Past Medical History: Diabetes-Type II, High Cholesterol Medical History Other: BACK SPASMS, PCOS, chronic bronchitis Past Surgical History: Unknown Family History Family History: Negative Social History Social History: Negative, Lives with family Female( History) History: Not Applicable LMP: Sep 17, 2025 : 0 Constitutional: (-) chills, (-) diaphoresis, (-) fever, (-) malaise, (-) weakness, (-) other documentation EENTM: (-) eye pain, (-) blurred vision, (-) tearing, (-) double vision, (-) ear pain, (-) ear discharge, (-) nose pain, (-) nose congestion, (-) throat pain, (-) Throat swelling, (-) mouth pain, (-) tooth pain, (-) mouth swelling, ( -) other documentation Respiratory: (-) cough, (-) orthopnea, (-) short of breath, (-) stridor, (-) wheezing, (-) other documentation Cardiovascular: (-) chest pain, (-) edema, (-) palpitations, (-) syncope, (-) dyspnea on exertion, (-) other documentation Gastrointestinal/Abdominal: (-) nausea, (-) vomiting, (-) diarrhea, (-) abdominal pain, (-) abdominal distention, (-) constipation, (-) rectal bleeding, (-) dark stool/melena, (-) other documentation Genitourinary: (-) vaginal discharge, (-) vaginal bleeding, (-) dysuria, (-) frequency, (-) hematuria, (-) pain, (-) other documentation Musculoskeletal: (-) Neck pain, (-) back pain, (-) Flank Pain, (-) joint pain, (-) joint swelling, (-) muscle pain, (-) muscle stiffness, (-) gout, (-) other documentation Skin: (-) laceration, (-) contusion, (-) abrasion, (-) abscess, (-) rash, (-) change in color, (-) change in hair, (-) change in nails, (-) diaphoresis, (-) dryness, (-) other documentation Physical Exam Physical Exam Dictation Patient appears healthy in nonacute distress. General Appearance: (+) mild distress Orientation: (+) alert, (+) oriented x 3 Head/Face Trauma: No Eye: bilateral eye normal inspection, bilateral eye PERRL, bilateral eye EOMI Ear, Nose, Throat: (+) hearing grossly normal, (+) normal ENT inspection, (+) moist mucous membraine Neck: (+) normal inspection, (+) supple, (+) full range of motion Respiratory: (+) chest non-tender, (+) lungs clear, (+) well ventilated Respiratory Comment Patient's has chest wall tenderness above her sternum and in her right flank particularly in her right ribcage. Heart: (+) regular, (+) no gallop, (+) murmur Vascular: (+) no edema, (+) normal peripheral pulse Gastrointestinal: (+) soft, (+) non-tender, (+) no organomegaly MDM MDM: Differential diagnosis: Musculoskeletal pain, dehydration, bronchitis, Rationale: Tests considered and ordered secondary to shared decision making include: Previous outside records reviewed: Old ER visits. Risk of complication and/or morbidity or mortality of patient management: None Medications-Per medication reconciliation Need for hospitalization: Patient does meet criteria for hospitalization. Need for emergency major/minor surgery: No There are no social concerns with this patient. Prescription drug management Prescriptions will include symptomatic care Patient's prior external medical records from other ER visits were reviewed by me as indicated. Prior testing and results from previous visits were reviewed. Prior tests were taken into account with medical decision making and resource utilization, independent historian/historians were used to obtain complete medical history. I independently interpreted the test that were performed, results were reviewed by me and considered findings on radiology if ordered. ED Course Orders Procedure Category Date Status Time 12 Lead Ekg Tracing- EKG 10/09/25 Logged Technical 23:46 Vital Signs Date Time Temp Pulse Resp B/P (MAP) Pulse Ox O2 Delivery O2 Flow Rate FiO2 10/09/25 23:47 97.3 74 20 144/90 98 Room Air DX & DISP Disposition: Discharge Departure Impression: Primary Impression: Acute pharyngitis, unspecified Additional Impressions: Chronic cough, Costochondritis Condition: Stable Scripts Benzonatate (Benzonatate) 200 Mg Capsule 1 CAP PO TID for cough for 10 Days, #30 CAP 0 Refills Prov: SONY PAYNE MD 10/10/25 Orphenadrine Citrate (Norflex) 100 Mg Srtab 1 TAB PO [id number] PRN for pain for 30 Days, #60 TAB 0 Refills Prov: SONY PAYNE MD 10/10/25 Additional Instructions: Your chest pain and right sided rib pain are both superficial and are exacerbated by light pressure and taking a deep breath. Therefore I do not think they are cardiac in origin. They are most likely musculoskeletal I have given you prescriptions for muscle relaxants and also a cough preventative medication. If your symptoms persist if you have fevers if they get worse please follow-up with your primary care physician. Referrals: KEMAR GALDAMEZ M.D. (PCP) SONY PAYNE MD Oct 10, 2025 00:38
[2025-10-10 01:00] VITALS: BP 125/66; PULSE 87; RESP 15; TEMP 98.8; O2SAT 99
--- NOTE | 2025-10-10 09:45 | EKG ---
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
== END 2025-10-10 01:03 | disposition home or self-care (01) ==
LOC: EDH 23:44
DX: M94.0 Chondrocostal junction syndrome [Tietze] (principal); J02.9 Acute pharyngitis, unspecified; R05.9 Cough, unspecified; E11.9 Type 2 diabetes mellitus without complications; E78.00 Pure hypercholesterolemia, unspecified; Z79.1 Long term (current) use of non-steroidal anti-inflammatories (NSAID); Z79.51 Long term (current) use of inhaled steroids
CPT/HCPCS: 93005; 99283